=== PATIENT | male | born 1970 | race Caucasian/White ===

== ENCOUNTER 2017-09-11 18:20 | Inpatient (IN) | payer OTHER ==
[2017-09-11 18:45] LABS: ADD MAN DIFF? NO
[2017-09-11] MEDS: IPRATRPIUM/ALBUTEROL 0.5/2.5MG 3 ML NEBU. NEB (18:45)
[2017-09-11 18:48] LABS: BASO # 0.1 x10^3/uL (0.0-0.2); BASO % 1 % (0-3); EOS # 0.3 x10^3/uL (0.0-0.7); EOS % 2 % (0-3); HEMATOCRIT 48.2 % (39.0-53.0); LYMPH # 4.9 x10^3/uL (1.0-4.8); LYMPH % 40 % (24-48); MEAN CORPUSCULAR HEMOGLOBIN 29 pg (25-35); MEAN CORPUSCULAR HGB CONC 33 g/dL (31-37); MEAN CORPUSCULAR VOLUME 88 fL (79-100); MONO % 8 % (0-9); NEUT # 5.9 x10^3uL (1.8-7.7); NEUT % 48 % (31-73); PLATELET COUNT 346 x10^3/uL (140-400); RED BLOOD COUNT 5.46 x10^6/uL (4.30-5.70); RED CELL DISTRIBUTION WIDTH 13.3 % (11.5-14.5); WHITE BLOOD COUNT 12.2 x10^3/uL (4.0-11.0)
[2017-09-11 18:59] LABS: ANION GAP 14 (6-14); BLOOD UREA NITROGEN 17 mg/dL (8-26); CALCIUM 9.2 mg/dL (8.5-10.1); CARBON DIOXIDE 27 mmol/L (21-32); CHLORIDE 97 mmol/L (98-107); GFR 79.8; GLUCOSE 256 mg/dL (70-99); POTASSIUM 3.2 mmol/L (3.5-5.1); SODIUM 138 mmol/L (136-145)
[2017-09-11 19:06] LABS: ALBUMIN 4.2 g/dL (3.4-5.0); ALK PHOS 107 U/L (46-116); ALT (SGPT) 92 U/L (16-63); AST (SGOT) 36 U/L (15-37); DIRECT BILIRUBIN 0.1 mg/dL (0.0-0.2); LIPASE 228 U/L (73-393); TOTAL BILIRUBIN 0.4 mg/dL (0.2-1.0); TOTAL PROTEIN 7.6 g/dL (6.4-8.2)
[2017-09-11 19:11] LABS: NT-PRO BNP 233 pg/mL (0-124)
[2017-09-11 19:14] LABS: TROPONINI < 0.017 ng/mL (0.000-0.055)
[2017-09-11] MEDS: IV NORMAL SALINE 1000ML BAG 1,000 ML IV (20:10)
[2017-09-11] MEDS ORDERED: ONDANSETRON PF 4 MG/2 ML VIAL. IV (20:15)
[2017-09-11] MEDS ORDERED: MORPHINE SULFATE 4 MG/ML DISP.SYRIN. IV (20:15)
[2017-09-11 20:42] LABS: PHOSPHORUS 3.4 mg/dL (2.6-4.7)
[2017-09-11 20:42] LABS: MAGNESIUM 1.8 mg/dL (1.8-2.4)
[2017-09-11 23:35] LABS: TROPONINI < 0.017 ng/mL (0.000-0.055)
[2017-09-12 02:03] LABS: ADD MAN DIFF? NO
[2017-09-12 02:04] LABS: BASO # 0.1 x10^3/uL (0.0-0.2); BASO % 1 % (0-3); EOS # 0.3 x10^3/uL (0.0-0.7); EOS % 3 % (0-3); HEMATOCRIT 43.7 % (39.0-53.0); HEMOGLOBIN 15.2 g/dL (13.0-17.5); LYMPH # 4.4 x10^3/uL (1.0-4.8); LYMPH % 48 % (24-48); MEAN CORPUSCULAR HEMOGLOBIN 31 pg (25-35); MEAN CORPUSCULAR HGB CONC 35 g/dL (31-37); MEAN CORPUSCULAR VOLUME 88 fL (79-100); MONO # 0.7 x10^3/uL (0.0-1.1); MONO % 8 % (0-9); NEUT # 3.8 x10^3uL (1.8-7.7); NEUT % 41 % (31-73); PLATELET COUNT 285 x10^3/uL (140-400); RED BLOOD COUNT 4.97 x10^6/uL (4.30-5.70); RED CELL DISTRIBUTION WIDTH 13.3 % (11.5-14.5); WHITE BLOOD COUNT 9.2 x10^3/uL (4.0-11.0)
[2017-09-12 02:18] LABS: ANION GAP 9 (6-14); BLOOD UREA NITROGEN 15 mg/dL (8-26); CALCIUM 8.9 mg/dL (8.5-10.1); CARBON DIOXIDE 29 mmol/L (21-32); CHLORIDE 102 mmol/L (98-107); CREATININE 0.9 mg/dL (0.7-1.3); GFR 90.1; GLUCOSE 183 mg/dL (70-99); POTASSIUM 3.1 mmol/L (3.5-5.1); SODIUM 140 mmol/L (136-145)
[2017-09-12 02:28] LABS: TROPONINI < 0.017 ng/mL (0.000-0.055)
[2017-09-12] MEDS: IV NORMAL SALINE 1000ML BAG 1,000 ML IV (06:10)
[2017-09-12] MEDS ORDERED: ALBUTEROL SULFATE 2.5 MG/3 ML NEBU. NEB (08:45)
[2017-09-12] MEDS: POTASSIUM CHLORIDE 20 MEQ TABLET.ER. PO ×2 (08:47→13:55)
[2017-09-12] MEDS ORDERED: NON FORMULARY ITEM (Fluticasone/Salmeterol (Advair 500-50 Diskus) 1 INH) IH (09:00)
[2017-09-12] MEDS: BUDESONIDE 0.5 MG/2 ML NEBU. NEB (09:00)
[2017-09-12] MEDS: hydroCHLOROthiazide 25 MG TABLET PO ×2 (10:13→13:41)
[2017-09-12] MEDS: LISINOPRIL 20 MG TABLET PO ×2 (10:13→13:41)
[2017-09-12] MEDS: amLODIPine BESYLATE 2.5 MG TABLET PO (10:13)
[2017-09-12] MEDS: ALBUTEROL SULFATE 2.5 MG/3 ML NEBU. NEB (12:00)
[2017-09-12 13:04] LABS: CHOLESTEROL 187 mg/dL (0-200); HDLC 23 mg/dL (40-60); NON-HDL CHOLESTEROL 164 mg/dL (0-129); TRIGLYCERIDES 622 mg/dL (0-150); VLDLC 124 mg/dL (0-40)
[2017-09-12 13:05] LABS: THYROID STIM HORMONE (TSH) 0.815 uIU/mL (0.358-3.74)
[2017-09-12 13:07] LABS: CHOLESTEROL/HDL RATIO 8.1
[2017-09-12] MEDS: ASPIRIN ENTERIC COATED 81 MG TABLET.DR. PO (13:55)
[2017-09-12] MEDS ORDERED: FENOFIBRATE 54 MG TABLET. PO (15:00)
[2017-09-12] MEDS ORDERED: OMEGA-3 FATTY ACIDS/FISH OIL 1,000 MG CAPSULE. PO (15:00)
[2017-09-13] MEDS ORDERED: metFORMIN XR 500 MG TAB.ER.24H PO (08:00)
[2017-09-13] MEDS ORDERED: ASPIRIN ENTERIC COATED 325 MG TABLET.DR. PO (08:00)
== END 2017-09-12 17:15 | disposition home or self-care (01) | DRG 310 ==
LOC: ER 18:20 → 2 NORTH 21:13
DX: I48.0 Paroxysmal atrial fibrillation (principal); E11.65 Type 2 diabetes mellitus with hyperglycemia; I48.92 Unspecified atrial flutter; E66.9 Obesity, unspecified; E87.6 Hypokalemia; F17.201 Nicotine dependence, unspecified, in remission; G47.33 Obstructive sleep apnea (adult) (pediatric); M19.90 Unspecified osteoarthritis, unspecified site; L40.9 Psoriasis, unspecified; I10 Essential (primary) hypertension; J45.909 Unspecified asthma, uncomplicated; K21.9 Gastro-esophageal reflux disease without esophagitis; Z79.82 Long term (current) use of aspirin; Z82.49 Family history of ischemic heart disease and other diseases of the circulatory system; Z68.32 Body mass index [BMI] 32.0-32.9, adult
CPT/HCPCS: 36415; 71045; 80048; 80061; 80076; 83690; 83735; 83880; 84100; 84443; 84484; 85025; 93005; 93306; 94640; 94760; 96372; 99285; 99285-25; J1650; J7030; J7626

== ENCOUNTER → 2018-04-01 | Outpatient (CLI) | payer OTHER ==
[2017-09-12 15:00] VITALS: BP 146/86
[~2018-04-01] MED LIST: AMLO2.5T3 PO; ASPI325T8 PO; ATEN50TA PO; ATOR20TA58 PO; DILT60TA3 PO; DILT90TA PO; FENO54TA PO; FLUT1DIS5 IH; HYDR12.58 PO; HYDR50TA6 PO; LISI-130 PO; LISI-334 PO; LISI1TAB5 PO; METF500T16 PO; METF750T2 PO; OMEG1CAP38 PO; PANT40TA3 PO; ZOLPIDEM 5 MG TABLET. PO ONE
--- NOTE | 2018-04-02 09:42 | SLEEP ---
DATE OF STUDY: 04/01/2018 ATTENDING PHYSICIAN: Dr. Antione Lee. The patient is 48 years old who weighs 240 pounds with a BMI of 33. The patient's [place] score was 14. The patient had a sleep study in the past, was positive for JAIME, but was unable to tolerate CPAP. Another split night study was performed. During the night study, the patient spent 429 minutes in bed and slept for 339 minutes with a sleep efficiency of 79%. Sleep latency was 39.5 minutes with a REM latency of 296 minutes. Overall, sleep architecture showed normal stage 1 sleep, increased stage 2 sleep, normal slow wave and reduced REM sleep. During the initial diagnostic portion of the study, the patient slept for 143 minutes. During that time, there were 9 obstructive apneas, 5 mixed and no central apneas and 71 hypopneas. The patient's apnea hypopnea index was 36 per hour, supine index 88 per hour and a REM index was not observed due to lack of REM sleep. EKG monitoring revealed normal sinus rhythm, average heart rate of 63 beats per minute. No arrhythmias observed. Nocturnal oximetry study revealed an average, mean oxygen saturation of 96% with the lowest of 82%. 8% of time oxygen saturation remained between 80% and 89%. PLMS were seen at index of 24 per hour and 4 per hour caused EEG arousals. The patient met the criteria for CPAP initiation. It was started at 5 cm water and titrated up to 11 cm water. There was some oral leak at this pressure; however, the patient had 47 minutes of sleep at that pressure, the patient had supine as well as REM sleep. The patient's AHI was reduced to 3 per hour and oxygen saturation remained above 92%. The patient used small sized nasal pillows. IMPRESSION: 1. Severe sleep apnea-hypopnea syndrome at an AHI of 36 per hour. 2. Nocturnal hypoxia secondary to obstructive sleep apnea, but resolved with CPAP. 3. Mild to moderate PLMS. RECOMMENDATIONS: 1. CPAP at 11 cm water completely eliminated the patient's sleep apnea and should be used on a nightly basis. 2. Follow up in 4-6 weeks to assess compliance with CPAP and to document clinical improvement. 3. Weight loss is strongly advised. 4. Avoid CREATIVE WRITING TEACHER depressants. 5. Caution regarding driving until symptoms of sleep apnea have resolve with the use of CPAP. 6. The patient should also be further evaluated for symptoms of restless legs during the day. 7. Avoid supine sleep. 8. The patient used small sized nasal pillows. JOSEPH RUANO MD DR: EVAN/carly JOB#: [id number] / [id number] ANTIONE Doe MD
== END | disposition home or self-care (01) ==
LOC: RT 18:33
PROVIDERS: ATTEND Internal Medicine Critical Care Medicine
DX: G47.33 Obstructive sleep apnea (adult) (pediatric) (principal); G47.34 Idiopathic sleep related nonobstructive alveolar hypoventilation; I10 Essential (primary) hypertension; J45.909 Unspecified asthma, uncomplicated; K21.9 Gastro-esophageal reflux disease without esophagitis; E11.9 Type 2 diabetes mellitus without complications; Z79.82 Long term (current) use of aspirin; Z79.84 Long term (current) use of oral hypoglycemic drugs
CPT/HCPCS: 95810

== ENCOUNTER 2018-04-06 21:59 | Inpatient (IN) | payer OTHER ==
[~2018-04-06] VITALS: Ht 182.9 cm; Wt 109.8 kg
[~2018-04-06 21:59] MED LIST changes: -ATOR20TA58 PO; -DILT90TA PO; -HYDR50TA6 PO; -LISI-130 PO; -ZOLPIDEM 5 MG TABLET. PO ONE
[2018-04-06] MEDS ORDERED: IV NORMAL SALINE 1000ML BAG 1,000 ML IV ONE (22:30)
[2018-04-06 22:55] LABS: BASO # 0.1 x10^3/uL (0.0-0.2); BASO % 1 % (0-3); EOS # 0.2 x10^3/uL (0.0-0.7); EOS % 3 % (0-3); HEMATOCRIT 43.9 % (39.0-53.0); HEMOGLOBIN 15.2 g/dL (13.0-17.5); LYMPH # 3.7 x10^3/uL (1.0-4.8); LYMPH % 42 % (24-48); MEAN CORPUSCULAR HEMOGLOBIN 30 pg (25-35); MEAN CORPUSCULAR HGB CONC 35 g/dL (31-37); MEAN CORPUSCULAR VOLUME 88 fL (79-100); MONO # 0.7 x10^3/uL (0.0-1.1); MONO % 8 % (0-9); NEUT % 46 % (31-73); PLATELET COUNT 255 x10^3/uL (140-400); RED BLOOD COUNT 4.99 x10^6/uL (4.30-5.70); RED CELL DISTRIBUTION WIDTH 12.6 % (11.5-14.5); WHITE BLOOD COUNT 8.8 x10^3/uL (4.0-11.0)
--- NOTE | 2018-04-06 22:57 | PHYS DOC ---
Past Medical History Past Medical History: Asthma, Diabetes-Type II, GERD, Hypertension Additional Past Medical Histor: A FLUTTER Past Surgical History: Other Additional Past Surgical Histo: Right ACL Additional Information: Nonsmoker Alcohol Use: None Drug Use: None Adult General Chief Complaint Chief Complaint: Palpitations HPI HPI 48-year-old male presents via EMS with report of sensation that his "heart was racing" which started at 0800 this morning. Patient does report some lightheadedness which began at 2130. Patient reports history of a flutter which required admission back in August. Reports he self converted overnight. Patient reports he follows with Dr. French (cardiology). Denies fever/chills. Denies chest pain. Denies trauma. EMS reports giving patient 324mg of ASA in route. Review of Systems Review of Systems Constitutional: Denies fever or chills [] Eyes: Denies change in visual acuity, redness, or eye pain [] HENT: Denies nasal congestion or sore throat [] Respiratory: Denies cough or shortness of breath [] Cardiovascular: Denies chest pain; reports palpitations GI: Denies abdominal pain, nausea, vomiting, or diarrhea [] : Denies dysuria or hematuria [] Musculoskeletal: Denies back pain or joint pain [] Integument: Denies rash or skin lesions [] Neurologic: Denies headache, focal weakness or sensory changes [] Complete systems were reviewed and found to be within normal limits, except as documented in this note. Current Medications Current Medications Current Medications Medications (Trade) Dose Ordered Sig/Katerin Start Time Stop Time Status Last Admin Dose Admin Dextrose (Dextrose 50%-Water Syringe) 12.5 gm PRN Q15MIN PRN 04/07/18 00:00 04/07/18 09:02 DC Insulin Human Regular (HumuLIN R VIAL) 10 unit 1X ONCE 04/07/18 00:00 04/07/18 00:01 DC 04/07/18 00:08 10 UNIT Magnesium Sulfate 50 ml @ 25 mls/hr 1X ONCE 04/07/18 00:00 04/07/18 01:59 DC 04/07/18 00:08 25 MLS/HR Ondansetron HCl (Zofran) 4 mg PRN Q8HRS PRN 04/07/18 00:00 04/07/18 23:59 Sodium Chloride 1,000 ml @ 1,000 mls/hr 1X ONCE 04/06/18 22:30 04/06/18 23:29 DC 04/06/18 22:54 1,000 MLS/HR Allergies Allergies Allergies Coded Allergies Type Severity Reaction Last Updated Verified No Known Drug Allergies 09/07/14 No Physical Exam Physical Exam Constitutional: Well developed, well nourished, no acute distress, non-toxic appearance. [] HENT: Normocephalic, atraumatic, bilateral external ears normal Eyes: Conjunctiva normal, no discharge. [] Neck: Normal range of motion, no tenderness, supple Cardiovascular: Irregularly irregular rhythm, rate normal[] Lungs & Thorax: Bilateral breath sounds clear to auscultation [] Abdomen: Soft, no tenderness Skin: Warm, dry, no erythema, no rash. [] Extremities: No tenderness, ROM intact, no edema. [] Neurologic: Alert and oriented X 3, normal motor function, normal sensory function, no focal deficits noted. [] Psychologic: Affect normal, judgement normal, mood normal. [] Current Patient Data Vital Signs Vital Signs Date Time Temp Pulse Resp B/P (MAP) Pulse Ox O2 Delivery O2 Flow Rate FiO2 04/06/18 22:50 80 144/65 (91) 97 Room Air 04/06/18 22:00 98.3 16 98.3 Lab Values Laboratory Tests Test 04/06/18 22:45 White Blood Count 8.8 x10^3/uL (4.0-11.0) Red Blood Count 4.99 x10^6/uL (4.30-5.70) Hemoglobin 15.2 g/dL (13.0-17.5) Hematocrit 43.9 % (39.0-53.0) Mean Corpuscular Volume 88 fL (79-100) Mean Corpuscular Hemoglobin 30 pg (25-35) Mean Corpuscular Hemoglobin Concent 35 g/dL (31-37) Red Cell Distribution Width 12.6 % (11.5-14.5) Platelet Count 255 x10^3/uL (140-400) Neutrophils (%) (Auto) 46 % (31-73) Lymphocytes (%) (Auto) 42 % (24-48) Monocytes (%) (Auto) 8 % (0-9) Eosinophils (%) (Auto) 3 % (0-3) Basophils (%) (Auto) 1 % (0-3) Neutrophils # (Auto) 4.0 x10^3uL (1.8-7.7) Lymphocytes # (Auto) 3.7 x10^3/uL (1.0-4.8) Monocytes # (Auto) 0.7 x10^3/uL (0.0-1.1) Eosinophils # (Auto) 0.2 x10^3/uL (0.0-0.7) Basophils # (Auto) 0.1 x10^3/uL (0.0-0.2) Prothrombin Time 12.8 SEC (11.7-14.0) Prothrombin Time INR 1.0 (0.8-1.1) PTT 27 SEC (24-38) Sodium Level 138 mmol/L (136-145) Potassium Level 3.5 mmol/L (3.5-5.1) Chloride Level 99 mmol/L (98-107) Carbon Dioxide Level 27 mmol/L (21-32) Anion Gap 12 (6-14) Blood Urea Nitrogen 19 mg/dL (8-26) Creatinine 1.1 mg/dL (0.7-1.3) Estimated GFR (Cockcroft-Gault) 71.1 BUN/Creatinine Ratio 17 (6-20) Glucose Level 321 mg/dL (70-99) H Calcium Level 9.3 mg/dL (8.5-10.1) Magnesium Level 1.7 mg/dL (1.8-2.4) L Total Bilirubin 0.2 mg/dL (0.2-1.0) Aspartate Amino Transferase (AST) 51 U/L (15-37) H Alanine Aminotransferase (ALT) 116 U/L (16-63) H Alkaline Phosphatase 134 U/L (46-116) H Creatine Kinase 401 U/L (39-308) H Creatine Kinase MB (Mass) 1.9 ng/mL (0.0-3.6) Creatine Kinase MB Relative Index 0.5 % (0-4) Troponin I Quantitative < 0.017 ng/mL (0.000-0.055) PW-Qpp-E-Type Natriuretic Peptide 384 pg/mL (0-124) H Total Protein 7.0 g/dL (6.4-8.2) Albumin 4.0 g/dL (3.4-5.0) Albumin/Globulin Ratio 1.3 (1.0-1.7) Lipase 259 U/L (73-393) Laboratory Tests 04/06/18 22:45 Laboratory Tests 04/06/18 22:45 EKG EKG @2208 Aflutter at 93bpm, NO ST elevation Radiology/Procedures Radiology/Procedures PROCEDURE: CHEST PA & LATERAL PA and lateral chest. HISTORY: Atrial fibrillation, palpitations PA and lateral views were taken of the chest. Lungs are clear. Heart is normal in size without heart failure. There is no effusion. IMPRESSION: 1. No acute chest disease. Electronically signed by: Juanito Manzo MD (04/07/2018 12:00 AM) [facility] Course & Med Decision Making Course & Med Decision Making Pertinent Labs and Imaging studies reviewed. (See chart for details) Patient presents with report of palpitations which started in the morning. Patient reports associated lightheadedness this evening. EMS noted patient to be an atrial flutter. EMS provided aspirin in route. EKG confirmed atrial flutter which is rate controlled. Labs obtained and posted to chart. Hyperglycemia addressed. Hypomagnesemia also addressed. IV fluid hydration provided. CXR without acute process. Patient requiring admission for further evaluation and treatment. Discussed with Dr. Espinoza (PCP) who is in agreement with admission. Cardiology consultation placed. Discussed findings and plan with patient and family, who acknowledge understanding and agreement. Spot[employer] voice recognition software utilized. Pluto[employer]TV Disclaimer [email or web address][employer]TV Disclaimer This electronic medical record was generated, in whole or in part, using a voice recognition dictation system. Departure Departure Impression: Primary Impression: Atrial flutter Additional Impressions: Hypomagnesemia Hyperglycemia Disposition: ADMITTED INPATIENT Admitting Physician: Antione Espinoza Condition: GUARDED Referrals: ANTIONE ESPINOZA MD (PCP) Critical Care Time Critical care time was 30 minutes which includes time at bedside, spent in discussion of patient's care with specialists and/or family members, with interpretation of laboratory and/or radiological studies and is exclusive of procedures. Problem Qualifiers Primary Impression: Atrial flutter Atrial flutter type: unspecified Qualified Codes: I48.92 - Unspecified atrial flutter FERNANDO FLEMING DO Apr 06, 2018 22:57
[2018-04-06 23:05] LABS: PROTHROMBIN TIME PATIENT 12.8 SEC (11.7-14.0)
[2018-04-06 23:15] LABS: CALCIUM 9.3 mg/dL (8.5-10.1); CREATININE 1.1 mg/dL (0.7-1.3); GFR 71.1; POTASSIUM 3.5 mmol/L (3.5-5.1)
[2018-04-06 23:27] LABS: ALBUMIN/GLOBULIN RATIO 1.3 (1.0-1.7); MAGNESIUM 1.7 mg/dL (1.8-2.4); TOTAL BILIRUBIN 0.2 mg/dL (0.2-1.0)
[2018-04-07] VITALS (7 sets, daily range): BP systolic 118–141; BP diastolic 74–99
[2018-04-07] MEDS ORDERED: ONDANSETRON PF 4 MG/2 ML VIAL. IV PRN
[2018-04-07] MEDS ORDERED: MAGNESIUM SULFATE 2GM 50 ML IV ONE
[2018-04-07] MEDS ORDERED: DEXTROSE 50% 25 GM / 50ML DISP.SYRIN. IV PRN
[2018-04-07] MEDS ORDERED: INSULIN REGULAR 100 UNIT/ML 3ML VIAL. SQ ONE
--- NOTE | 2018-04-07 00:03 | RAD ---
PA and lateral chest. HISTORY: Atrial fibrillation, palpitations PA and lateral views were taken of the chest. Lungs are clear. Heart is normal in size without heart failure. There is no effusion. IMPRESSION: 1. No acute chest disease. Electronically signed by: Juanito Manzo MD (04/07/2018 12:00 AM) [facility]
[2018-04-07] MEDS ORDERED: FLUT1DIS5 IH (01:24)
[2018-04-07] MEDS ORDERED: LISI-130 PO (01:24)
[2018-04-07] MEDS ORDERED: DILT90TA PO (01:24)
[2018-04-07] MEDS ORDERED: ATOR20TA58 PO (01:24)
[2018-04-07] MEDS ORDERED: HYDR50TA6 PO (01:24)
--- NOTE | 2018-04-07 01:58 | EKG ---
[facility] [address] [place] [address] Test Date: 2018-04-06 Test Time: 22:08:53 Pat Name: JOHN RAI Department: Room: Gender: M Grocery Stocker: : 1970 Requested By: FERNANDO FLEMING Order Number: [id number] Reading MD: Measurements Intervals Hoffman Rate: 93 P: MI: QRS: -22 QRSD: 84 T: 17 QT: 346 QTc: 433 Interpretive Statements IRREGULAR RHYTHM, NO P-WAVE FOUND LEFTWARD AXIS OTHERWISE NORMAL ECG RI6.01 No previous ECG available for comparison
[2018-04-07] MEDS ORDERED: INSULIN LISPRO 300 UNITS/3 ML INSULN.PEN. SQ SCH (08:00)
--- NOTE | 2018-04-07 09:21 | PDOC ---
Provider Note Provider Note [id number] ANTIONE ESPINOZA MD Apr 07, 2018 09:21
[2018-04-07] MEDS ORDERED: metFORMIN XR 500 MG TAB.ER.24H PO SCH (09:30)
[2018-04-07] MEDS ORDERED: hydroCHLOROthiazide 25 MG TABLET PO SCH (10:00)
[2018-04-07] MEDS: LISINOPRIL 20 MG TABLET PO SCH (10:00)
--- NOTE | 2018-04-07 10:58 | HP ---
ADMIT DATE: 04/07/2018 CHIEF COMPLAINT: Irregular heartbeat. HISTORY OF PRESENT ILLNESS: A 48-year-old white male, prior known hypertensive with a history of recurrent atrial flutter and also type 2 diabetes. He was noticing irregular heartbeats on the day of admission without chest pain, shortness of breath, cough or other symptoms and came to the ER where he was found to be in atrial flutter with controlled ventricular rate. He was in the hospital about 6 months ago for the same problem and started on diltiazem after echo and other tests were seen to be unremarkable and he has had no further problem since then. He is a type 2 diabetic who has been off his metformin for a few months because of GI intolerance. Blood sugars have probably been running higher than normal for him. PAST MEDICAL HISTORY: No other serious known medical problems. MEDICATIONS: He is on blood pressure medications. ALLERGIES: None. SOCIAL HISTORY: Nonsmoker, nondrinker, truck rental clerk, . FAMILY HISTORY: Unremarkable. REVIEW OF SYSTEMS: No other complaints. PHYSICAL EXAMINATION: ENT: All within normal limits. NECK: No masses, nodes, or thyroid enlargement. LUNGS: Clear. CARDIOVASCULAR: Regular rate at this time, no irregular beat, murmur or tachycardia, rate is about 80-90. ABDOMEN: Obese, soft, benign and nontender. EXTREMITIES: Good pedal and radial pulses. No joint or skin lesions. NEUROLOGIC: Physiologic and nonfocal. ASSESSMENT: 1. Recurrent paroxysmal atrial flutter, currently in sinus rhythm. Etiology is multifactorial, likely contributing by obesity, sleep apnea and borderline low potassium and magnesium. 2. Inadequately controlled type 2 diabetes due to metformin intolerance. 3. Transaminases elevated, likely secondary to fatty liver from diabetes. PLAN: We will continue current meds. We will add some potassium and resume lower dose metformin. CV consults, we will discuss rhythm control medications such as sotalol consideration versus current diltiazem therapy as well as anticoagulation therapy. He is currently on aspirin daily and a statin. ANTIONE ESPINOZA MD DR: RULA/carly JOB#: [id number] / [id number]
--- NOTE | 2018-04-07 11:10 | PDOC2 ---
CONSULT Date of Consult Date of Consult DATE: 04/07/18 TIME: 11:09 Reason for Consult Reason for Consult: Atrial fibrillation Referring Physician Referring Physician: Dr. Lee Identification/Chief Complaint Chief Complaint Palpitations Source Source: Chart review, Patient History of Present Illness Reason for Visit: 48-year-old male who was treated at [facility] for atrial fibrillation/flutter in September 2017 presented complaining of palpitations and was found to be in atrial fibrillation/flutter. He converted to sinus rhythm overnight and denied any further episodes of palpitations. He also denied any chest pain, orthopnea/PND or syncope. Past Medical History Cardiovascular: HTN Pulmonary: Asthma, Other CENTRAL NERVOUS SYSTEM: Other GI: GERD Heme/Onc: No pertinent hx Hepatobiliary: No pertinent hx Psych: No pertinent hx Musculoskeletal: Osteoarthritis Rheumatologic: No pertinent hx Infectious disease: No pertinent hx Renal/: No pertinent hx Endocrine: Diabetes Past Surgical History Past Surgical History: Arthroscopy, Other Family History Family History: Coronary Artery Disease Social History ALCOHOL: none Drugs: None Lives: with Family Current Medications Current Medications Current Medications Sodium Chloride 1,000 ml @ 1,000 mls/hr 1X ONCE IV Last administered on 04/06at 22:54; Start 04/06/18 at 22:30; Stop 04/06/18 at 23:29; Status DC Insulin Human Regular (HumuLIN R VIAL) 10 unit 1X ONCE SQ Last administered on 04/07/18at 00:08; Start 04/07/18 at 00:00; Stop 04/07/18 at 00:01; Status DC Magnesium Sulfate 50 ml @ 25 mls/hr 1X ONCE IV Last administered on at 00:08; Start 04/07/18 at 00:00; Stop 04/07/18 at 01:59; Status DC Ondansetron HCl (Zofran) 4 mg PRN Q8HRS PRN IV NAUSEA/VOMITING 1ST CHOICE; Start 04/07/18 at 00:00; Stop 04/07/18 at 23:59 Insulin Human Lispro (HumaLOG) 0-5 UNITS TIDWMEALS SQ ; Start 04/07/18 at 08:00 ; Stop 04/07/18 at 09:02; Status DC Dextrose (Dextrose 50%-Water Syringe) 12.5 gm PRN Q15MIN PRN IV SEE COMMENTS; Start 04/07/18 at 00:00; Stop 04/07/18 at 09:02; Status DC Influenza Virus Vaccine (Afluria Trivalent [id number] Syringe) 0.5 ml ONCE ONCE VAX IM Last administered on 04/07/18at 10:05; Start 04/07/18 at 09:00; Stop 04/07/18 at 09:01; Status DC Atorvastatin Calcium (Lipitor) 20 mg QHS PO ; Start 04/07/18 at 21:00 Lisinopril (Prinivil) 40 mg DAILY PO Last administered on 04/07/18at 10:00; Start 04/07/18 at 10:00 Diltiazem HCl (Cardizem 24hr Cd) 180 mg DAILY PO Last administered on at 10:00; Start 04/07/18 at 10:30 Hydrochlorothiazide (Hydrodiuril) 50 mg DAILY PO Last administered on at 10:00; Start 04/07/18 at 10:00 Metformin HCl (Glucophage Xr) 1,000 mg DAILYWBKFT PO ; Start 04/07/18 at 09:30 Potassium Chloride (Klor-Con) 20 meq BIDAFTMEAL PO ; Start 04/07/18 at 12:00; Stop 04/08/18 at 08:00 Active Scripts Active Reported Advair 500-50 Diskus (Fluticasone/Salmeterol) 1 Each Disk.w.dev 1 Puff IH BID Hydrochlorothiazide Tablet (Hydrochlorothiazide) 50 Mg Tablet 50 Mg PO DAILY Diltiazem Hcl Tablet (Diltiazem Hcl) 90 Mg Tablet 180 Mg PO DAILY Lisinopril 40 Mg Tablet 1 Tab PO DAILY Atorvastatin Calcium 20 Mg Tablet 20 Mg PO DAILY Allergies Allergies: Coded Allergies: No Known Drug Allergies (Unverified , 09/07/14) ROS PSYCHOLOGICAL ROS: No: Hallucinations Eyes: No Loss of vision HEENT: No: Epistaxis Respiratory: No: Hemoptysis, Shortness of breath Cardiovascular: yes Palpitations; No Chest Pain Gastrointestinal: No Vomiting, No Diarrhea Neurological: No Seizures Skin: No Rash Physical Exam General: Alert, Oriented X3 HEENT: Atraumatic, PERRLA Lungs: Clear to auscultation Heart: Regular rate, No murmurs Extremities: No edema Psych/Mental Status: Mood NL Vitals VITALS Vital Signs Date Time Temp Pulse Resp B/P (MAP) Pulse Ox O2 Delivery O2 Flow Rate FiO2 04/07/18 10:00 73 137/99 04/07/18 08:05 Room Air 04/07/18 07:00 98.3 16 95 98.3 Labs Labs Laboratory Tests Test 04/06/18 22:45 04/07/18 03:00 04/07/18 06:00 04/07/18 07:16 White Blood Count 8.8 x10^3/uL (4.0-11.0) Red Blood Count 4.99 x10^6/uL (4.30-5.70) Hemoglobin 15.2 g/dL (13.0-17.5) Hematocrit 43.9 % (39.0-53.0) Mean Corpuscular Volume 88 fL (79-100) Mean Corpuscular Hemoglobin 30 pg (25-35) Mean Corpuscular Hemoglobin Concent 35 g/dL (31-37) Red Cell Distribution Width 12.6 % (11.5-14.5) Platelet Count 255 x10^3/uL (140-400) Neutrophils (%) (Auto) 46 % (31-73) Lymphocytes (%) (Auto) 42 % (24-48) Monocytes (%) (Auto) 8 % (0-9) Eosinophils (%) (Auto) 3 % (0-3) Basophils (%) (Auto) 1 % (0-3) Neutrophils # (Auto) 4.0 x10^3uL (1.8-7.7) Lymphocytes # (Auto) 3.7 x10^3/uL (1.0-4.8) Monocytes # (Auto) 0.7 x10^3/uL (0.0-1.1) Eosinophils # (Auto) 0.2 x10^3/uL (0.0-0.7) Basophils # (Auto) 0.1 x10^3/uL (0.0-0.2) Prothrombin Time 12.8 SEC (11.7-14.0) Prothromb Time International Ratio 1.0 (0.8-1.1) Activated Partial Thromboplast Time 27 SEC (24-38) Sodium Level 138 mmol/L (136-145) Potassium Level 3.5 mmol/L (3.5-5.1) Chloride Level 99 mmol/L (98-107) Carbon Dioxide Level 27 mmol/L (21-32) Anion Gap 12 (6-14) Blood Urea Nitrogen 19 mg/dL (8-26) Creatinine 1.1 mg/dL (0.7-1.3) Estimated GFR (Cockcroft-Gault) 71.1 BUN/Creatinine Ratio 17 (6-20) Glucose Level 321 mg/dL (70-99) Calcium Level 9.3 mg/dL (8.5-10.1) Magnesium Level 1.7 mg/dL (1.8-2.4) Total Bilirubin 0.2 mg/dL (0.2-1.0) Aspartate Amino Transf (AST/SGOT) 51 U/L (15-37) Alanine Aminotransferase (ALT/SGPT) 116 U/L (16-63) Alkaline Phosphatase 134 U/L (46-116) Creatine Kinase 401 U/L (39-308) Creatine Kinase MB (Mass) 1.9 ng/mL (0.0-3.6) Creatine Kinase MB Relative Index 0.5 % (0-4) Troponin I Quantitative < 0.017 ng/mL (0.000-0.055) < 0.017 ng/mL (0.000-0.055) < 0.017 ng/mL (0.000-0.055) KP-Szt-H-Type Natriuretic Peptide 384 pg/mL (0-124) Total Protein 7.0 g/dL (6.4-8.2) Albumin 4.0 g/dL (3.4-5.0) Albumin/Globulin Ratio 1.3 (1.0-1.7) Lipase 259 U/L (73-393) Glucose (Fingerstick) 240 mg/dL (70-99) Laboratory Tests Test 04/06/18 22:45 04/07/18 03:00 04/07/18 06:00 04/07/18 07:16 White Blood Count 8.8 x10^3/uL (4.0-11.0) Red Blood Count 4.99 x10^6/uL (4.30-5.70) Hemoglobin 15.2 g/dL (13.0-17.5) Hematocrit 43.9 % (39.0-53.0) Mean Corpuscular Volume 88 fL (79-100) Mean Corpuscular Hemoglobin 30 pg (25-35) Mean Corpuscular Hemoglobin Concent 35 g/dL (31-37) Red Cell Distribution Width 12.6 % (11.5-14.5) Platelet Count 255 x10^3/uL (140-400) Neutrophils (%) (Auto) 46 % (31-73) Lymphocytes (%) (Auto) 42 % (24-48) Monocytes (%) (Auto) 8 % (0-9) Eosinophils (%) (Auto) 3 % (0-3) Basophils (%) (Auto) 1 % (0-3) Neutrophils # (Auto) 4.0 x10^3uL (1.8-7.7) Lymphocytes # (Auto) 3.7 x10^3/uL (1.0-4.8) Monocytes # (Auto) 0.7 x10^3/uL (0.0-1.1) Eosinophils # (Auto) 0.2 x10^3/uL (0.0-0.7) Basophils # (Auto) 0.1 x10^3/uL (0.0-0.2) Prothrombin Time 12.8 SEC (11.7-14.0) Prothromb Time International Ratio 1.0 (0.8-1.1) Activated Partial Thromboplast Time 27 SEC (24-38) Sodium Level 138 mmol/L (136-145) Potassium Level 3.5 mmol/L (3.5-5.1) Chloride Level 99 mmol/L (98-107) Carbon Dioxide Level 27 mmol/L (21-32) Anion Gap 12 (6-14) Blood Urea Nitrogen 19 mg/dL (8-26) Creatinine 1.1 mg/dL (0.7-1.3) Estimated GFR (Cockcroft-Gault) 71.1 BUN/Creatinine Ratio 17 (6-20) Glucose Level 321 mg/dL (70-99) Calcium Level 9.3 mg/dL (8.5-10.1) Magnesium Level 1.7 mg/dL (1.8-2.4) Total Bilirubin 0.2 mg/dL (0.2-1.0) Aspartate Amino Transf (AST/SGOT) 51 U/L (15-37) Alanine Aminotransferase (ALT/SGPT) 116 U/L (16-63) Alkaline Phosphatase 134 U/L (46-116) Creatine Kinase 401 U/L (39-308) Creatine Kinase MB (Mass) 1.9 ng/mL (0.0-3.6) Creatine Kinase MB Relative Index 0.5 % (0-4) Troponin I Quantitative < 0.017 ng/mL (0.000-0.055) < 0.017 ng/mL (0.000-0.055) < 0.017 ng/mL (0.000-0.055) CQ-Tjy-Y-Type Natriuretic Peptide 384 pg/mL (0-124) Total Protein 7.0 g/dL (6.4-8.2) Albumin 4.0 g/dL (3.4-5.0) Albumin/Globulin Ratio 1.3 (1.0-1.7) Lipase 259 U/L (73-393) Glucose (Fingerstick) 240 mg/dL (70-99) Assessment/Plan Assessment/Plan 1. Paroxysmal atrial fibrillation: presently back in sinus rhythm. 2-D echo in September 2017 showed normal LV systolic function. Start flecainide for antiarrhythmic therapy. His ChadsVasc score is 2. We will start Eliquis prior to discharge for stroke prophylaxis. 2. Hypertension: Labile but better controlled. Continue current medical regimen. 3. Hyperlipidemia: Statins 4. Diabetes mellitus type 2: Treat per IM Thank you for your consultation LANIE CHRISTENSEN MD Apr 07, 2018 11:10
[2018-04-07] MEDS: POTASSIUM CHLORIDE 20 MEQ TABLET.ER. PO SCH ×2 (11:48→17:56)
[2018-04-07] MEDS: FLECAINIDE ACETATE 50 MG TABLET. PO SCH ×2 (11:53→20:28)
[2018-04-07] MEDS ORDERED: ATORVASTATIN CALCIUM 20 MG TABLET PO SCH (21:00)
[2018-04-08 03:00] VITALS: BP 124/80
[2018-04-08 07:23] VITALS: BP 130/85
--- NOTE | 2018-04-08 08:19 | DISCH ---
DISCHARGE INSTRUCTIONS Condition on Discharge Condition on Discharge: Stable Activity After Discharge Activity Instructions for Disc: Resume previous activity Exercise Instruction after Dis: Progress as tolerated Weight Bearing Status after Di: No restrictions Diet after Discharge Diet after Discharge: Cardiac, Diabetic No Calorie Level Diet Texture: Regular Liquid Texture: Thin Liquid Swallowing Supervision: None needed Checks after Discharge Checks after discharge: Check blood press - daily Follow-Up Follow up with: dr miranda 1 w Treatment/Equipment after DC Adaptive Equipment Issued: None ANTIONE ESPINOZA MD Apr 08, 2018 08:19
--- NOTE | 2018-04-08 08:23 | PDOC ---
Provider Note Provider Note [id number] ANTIONE ESPINOZA MD Apr 08, 2018 08:23
[2018-04-08 08:52] VITALS: BP 130/85
[2018-04-08] MEDS: LISINOPRIL 20 MG TABLET PO SCH (08:52)
[2018-04-08] MEDS ORDERED: hydroCHLOROthiazide 25 MG TABLET PO SCH (09:00)
--- NOTE | 2018-04-08 13:26 | DS ---
DATE OF DISCHARGE: 04/08/2018 HOSPITAL SUMMARY: A 48-year-old white male with previous history of paroxysmal atrial flutter, came in with symptomatic palpitations without tachycardia. This was an atrial flutter on admission that spontaneously converted shortly after with IV diltiazem. Laboratory studies showed an elevated glucose of 321, AST 51, ALT 116. CBC unremarkable. Potassium was normal. Chest x-ray was clear. He was continued on oral diltiazem for rate control and Dr. Kelly consulted. He recommended trying flecainide for rhythm control. The patient was recently diagnosed with sleep apnea and CPAP has not yet been started and as he has had an event monitor in the past for 30 days, which showed no atrial fibrillation, he has decided to not use rhythm control medicine or anticoagulation at this time and we will treat the underlying sleep apnea, which could be contributing to the atrial flutter. He has not been able to tolerate metformin ER admitting dose. We will go back to metformin 500 mg short acting to taking 2 tablets once a day and see if he is stable to tolerate that. If not, he would require other medications, perhaps low dose sulfonylurea or Onglyza for diabetic control. The patient understands the risks and benefits of taking or not taking rhythm control medicine or anticoagulation and he is comfortable with this nondrug management at this time. FINAL DIAGNOSES: 1. Paroxysmal atrial flutter. 2. Elevated liver function tests, likely secondary to nonalcoholic fatty liver disease. OPERATIONS, PROCEDURES, COMPLICATIONS: None. CONSULTATIONS: Dr. Kelly. DISPOSITION: We will see him in 1 week with him taking current home meds with the addition of metformin short acting 500 mg 2 tablets each morning only to see if he can tolerate this. We will do another A1c and follow his rhythm and then, he will get home CPAP arranged as an intervention that could assist cardiovascular benefit. We will need to follow liver function tests as well and evaluate consideration or other causes of transaminitis beyond the fatty liver if they progress. ANTIONE ESPINOZA MD DR: URLA/carly JOB#: [id number] / [id number]
== END 2018-04-08 10:26 | disposition home or self-care (01) | DRG 310 ==
LOC: ER 21:59 → 5 SOUTH 04-07 00:07
PROVIDERS: ADMIT Family Medicine; ATTEND Family Medicine
DX: I48.0 Paroxysmal atrial fibrillation (principal); I10 Essential (primary) hypertension; K21.9 Gastro-esophageal reflux disease without esophagitis; E11.9 Type 2 diabetes mellitus without complications; J45.909 Unspecified asthma, uncomplicated; M19.90 Unspecified osteoarthritis, unspecified site; E78.5 Hyperlipidemia, unspecified; K76.0 Fatty (change of) liver, not elsewhere classified; R79.89 Other specified abnormal findings of blood chemistry; E66.9 Obesity, unspecified; Z68.32 Body mass index [BMI] 32.0-32.9, adult; Z79.84 Long term (current) use of oral hypoglycemic drugs; Z82.49 Family history of ischemic heart disease and other diseases of the circulatory system
CPT/HCPCS: 36415; 71046; 80053; 82553; 82962; 83690; 83735; 83880; 84484; 85025; 85610; 85730; 90471; 90756; 93005; 96361; 96365; 96372; J1815; J3475; J7030; 99291-25; Q2035